=== PATIENT | female | born 1985 | race Two or more races ===

== ENCOUNTER 2016-12-22 03:34 | Inpatient (IN) | payer SELFPAY ==
[~2016-12-22] VITALS: Ht 162.6 cm; Wt 79.4 kg
[~2016-12-22 03:34] MED LIST: NITR100C62 PO; PNV91TAB3 PO
[2016-12-22] MEDS ORDERED: OXYTOCIN 30 UNIT/500 ML PREMIX 500 ML IV PRN ×2 (04:00→08:00)
[2016-12-22] MEDS ORDERED: AMPICILLIN 1 GM in IV NORMAL SALINE 50ML 50 ML IV SCH ×2 (04:00→08:30)
[2016-12-22] MEDS ORDERED: 0.9 % SODIUM CHLORIDE 10 ML DISP.SYRIN. IV PRN ×2 (04:00→08:00)
[2016-12-22] MEDS ORDERED: BUTORPHANOL 2 MG VIAL. IV PRN (04:00)
[2016-12-22] MEDS ORDERED: TERBUTALINE 1 MG/ML VIAL. SQ PRN (04:00)
[2016-12-22] MEDS ORDERED: LIDOCAINE 1% PF 30 ML VIAL. INJ PRN (04:00)
[2016-12-22] MEDS ORDERED: IBUPROFEN 600 MG TABLET. PO PRN (04:00)
[2016-12-22] MEDS ORDERED: FENTANYL PF 100 MCG/2 ML VIAL. IV PRN (04:00)
[2016-12-22 04:26] LABS: BILIRUBIN,URINE NEGATIVE (NEG); GLUCOSE,URINE NEGATIVE (NEG); NITRITE,URINE NEGATIVE (NEG); PROTEIN,URINE NEGATIVE (NEG-TRACE); UROBILINOGEN,URINE 0.2 mg/dL (0.2 mg/dL)
[2016-12-22] MEDS ORDERED: AMPICILLIN 2 GM in IV NORMAL SALINE 100ML 100 ML IV ONE (04:30)
[2016-12-22 04:33] LABS: BACTERIA,URINE 0 /HPF (0-FEW); RBC,URINE OCC /HPF (0-2); SQUAMOUS EPITHELIAL CELL,UR FEW /LPF
[2016-12-22 04:34] VITALS: BP 120/72
[2016-12-22] MEDS: IV RINGERS,LACTATED 1000ML 1,000 ML IV SCH ×3 (04:47→10:40)
[2016-12-22 04:53] LABS: BASO % 0 % (0-3); EOS % 1 % (0-3); HEMATOCRIT 35.2 % (36.0-47.0); LYMPH # 2.4 x10^3/uL (1.0-4.8); LYMPH % 23 % (24-48); MEAN CORPUSCULAR HEMOGLOBIN 31 pg (25-35); MEAN CORPUSCULAR HGB CONC 34 g/dL (31-37); MEAN CORPUSCULAR VOLUME 90 fL (79-100); MONO % 5 % (0-9); NEUT % 70 % (31-73); PLATELET COUNT 196 x10^3/uL (140-400); RED BLOOD COUNT 3.92 x10^6/uL (3.50-5.40); WHITE BLOOD COUNT 10.4 x10^3/uL (4.0-11.0)
[2016-12-22] MEDS ORDERED: BETAMET ACET&NA PHOS 30 MG/5 ML VIAL. IM SCH (05:00)
[2016-12-22] MEDS ORDERED: OXYTOCIN in NORMAL SALINE PREMIX 30 UNIT/500 ML BAG. IV ONE (05:00)
[2016-12-22] MEDS ORDERED: AZITHROMYCIN 500 MG in IV NORMAL SALINE 250ML 250 ML IV ONE (06:30)
[2016-12-22] MEDS ORDERED: MAGNESIUM HYDROXIDE 2,400 MG/30 ML ORAL.SUSP. PO PRN (08:00)
[2016-12-22] MEDS ORDERED: MAG HYDROX/ALUMINUM HYD/SIMETH 30 ML ORAL.SUSP PO PRN (08:00)
[2016-12-22] MEDS ORDERED: HYDROCORTISONE 1% TOPICAL OINTMENT 30GM TUBE. TP PRN (08:00)
[2016-12-22] MEDS ORDERED: ACETAMINOPHEN 325 MG TABLET. PO PRN (08:00)
[2016-12-22] MEDS ORDERED: MMR per PROTOCOL. MC PRN (08:00)
[2016-12-22] MEDS ORDERED: ZOLPIDEM 5 MG TABLET. PO PRN (08:00)
[2016-12-22] MEDS ORDERED: OXYCODONE/APAP 5/325 TABLET. PO PRN (08:00)
[2016-12-22] MEDS ORDERED: DOCUSATE SODIUM 100 MG CAPSULE PO PRN (08:00)
[2016-12-22] MEDS ORDERED: SIMETHICONE 80 MG TAB.CHEW PO PRN (08:00)
[2016-12-22] MEDS ORDERED: DIPHENHYDRAMINE HCL 25 MG CAPSULE PO PRN (08:00)
[2016-12-22] MEDS ORDERED: PHENYLEPH/MINERAL OIL/PETROLAT RECTAL OINTMENT 28GM TUBE. RC PRN (08:00)
[2016-12-22] MEDS ORDERED: BENZOCAINE 20% TOPICAL AEROSOL SPRAY 57GM CAN. TP PRN (08:00)
--- NOTE | 2016-12-22 11:52 | HP ---
ADMIT DATE: CHIEF COMPLAINT AND HISTORY OF PRESENT ILLNESS: This patient is a 31-year-old Stateless lady who is 4, para 4 and her EDC 02/17/2017, was seen at the [facility] and the patient came into the [facility] Delivery [facility] at [facility] and complaining of leaking of fluid and also having pain and contractions. OBJECTIVE: VITAL SIGNS: Stable. HEAD, EYES, NOSE, THROAT: Within normal limits. LUNGS: Clear. HEART: Sounds regular sinus rhythm. BREASTS: No masses are palpable at this time. ABDOMEN: Feels about 33 weeks. heart tones are 140 per minute, vertex presenting. PELVIC: Exam showed cervix dilated to about ____ cm and leaking clear amniotic fluid, hence the patient admitted to the hospital. DIAGNOSES: 4, 33 weeks' , labor, premature rupture of membranes. PLAN: Admission, IV fluids, IV antibiotics and vaginal delivery. BHARTI MCCRARY MD DR: LEYDA/helena JOB#: [id number] / [id number]
[2016-12-22] MEDS ORDERED: IBUPROFEN 600 MG TABLET. PO SCH (12:00)
--- NOTE | 2016-12-22 12:11 | LDN ---
DATE OF DELIVERY: The patient is a 31-year-old Ethiopian lady who is a 4, para 4, admitted to the hospital with a history of having contractions and leaking amniotic fluid. At the time of admission to the hospital, cervix dilated about 3 cm, vertex presenting, leaking clear fluid and she did have ____ labor to 6 cm and augmentation of labor was done at this time with IV Pitocin and she got to complete dilatation and had a spontaneous vaginal delivery. A live female delivered at 10:58 a.m. on 12/22/2016 with a good scores, cord appeared to be normal, spontaneous expulsion of the placenta. There was no perineal care. She did receive Pitocin after delivery of the placenta. Estimated blood loss about 50 mL. Mother tolerated the delivery well. No complications at this time. Baby is referred to bicycle rental clerk for further care and treatment. BHARTI MCCRARY MD DR: LEYDA/helena JOB#: [id number] / [id number]
[2016-12-22 14:00] VITALS: BP 100/51
[2016-12-22 15:00] VITALS: BP 98/55
[2016-12-22 18:25] VITALS: BP 95/50
[2016-12-22 23:08] VITALS: BP 87/54
[2016-12-23 06:32] VITALS: BP 114/60
[2016-12-23] MEDS ORDERED: FERROUS SULFATE 325 MG TABLET PO SCH (08:00)
--- NOTE | 2016-12-23 08:26 | PDOC3 ---
OB DISCHARGE SUMMARY DATE OF ADMISSION: 12/22/16 DATE OF DISCHARGE: 12/23/16 REASON FOR ADMISSION: Onset of labor, labor PROCEDURES: Ultrasound INTRAPARTUM PROCEDURES: Spontanous Vag Deliv PROCEDURES: None OPERATIONS: None DISCHARGE DIAGNOSIS: Others ( delivery) DISCHARGE INFORMATION: Activity, Diet HOSPITAL COURSE Unremarkable CONDITION AT DISCHARGE Stable ROSALIE GIBBS MD Dec 23, 2016 08:26
[2016-12-23] MEDS ORDERED: NAPR500T3 PO (08:27)
[2016-12-23] MEDS ORDERED: HYDR-971 PO (08:27)
[2016-12-23 09:51] VITALS: BP 108/69
== END 2016-12-23 10:30 | disposition home or self-care (01) | DRG 775 ==
LOC: OBSVTOIN 03:34 → 3 SO LND 03:34
PROVIDERS: ADMIT Obstetrics & Gynecology; ATTEND Obstetrics & Gynecology
PROC: 10E0XZZ Delivery of Products of Conception, External Approach (ICD-10-PCS; principal; 2016-12-22)
PROC: 3E033VJ Introduction of Other Hormone into Peripheral Vein, Percutaneous Approach (ICD-10-PCS; 2016-12-22)
DX: O60.10X0 Preterm labor with preterm delivery, unspecified trimester, not applicable or unspecified (principal); O42.913 Preterm premature rupture of membranes, unspecified as to length of time between rupture and onset of labor, third trimester; Z3A.33 33 weeks gestation of pregnancy; Z37.0 Single live birth
CPT/HCPCS: 36415; 81001; 85014; 85027; 86593; 86762; 86850; 86900; 86901; 87086; 87340; 87341; 87653; G0378; J0290; J0456; J0702; J2590; J7050; J7120; J7030

== ENCOUNTER 2018-07-16 05:48 | Observation (INO) | payer SELFPAY ==
[2018-07-16] VITALS (10 sets, daily range): BP systolic 104–118; BP diastolic 56–72
[~2018-07-16] VITALS: Ht 165.1 cm; Wt 76.2 kg
[~2018-07-16 05:48] MED LIST changes: +HYDR-971 PO; +NAPR-514 PO
[2018-07-16] MEDS ORDERED: BUPIVACAINE-EPI 0.5%-1:200000 50 ML VIAL. ONE ×2 (06:04)
[2018-07-16] MEDS ORDERED: METHYLENE BLUE 1% 10 ML VIAL. ONE (06:04)
[2018-07-16] MEDS ORDERED: DEXAMETHASONE SOD PHOS 20 MG/5 ML VIAL. ONE (06:21)
[2018-07-16] MEDS ORDERED: PROPOFOL 20 ML IV ONE ×2 (06:21→09:06)
[2018-07-16] MEDS ORDERED: FAMOTIDINE 20 MG/2 ML VIAL ONE ×2 (06:21→07:49)
[2018-07-16] MEDS ORDERED: ROCURONIUM 50 MG/5 ML VIAL. ONE (06:22)
[2018-07-16 06:38] LABS: BASO % 1 % (0-3); EOS # 0.1 x10^3/uL (0.0-0.7); EOS % 2 % (0-3); HEMATOCRIT 39.8 % (36.0-47.0); LYMPH # 2.2 x10^3/uL (1.0-4.8); LYMPH % 32 % (24-48); MEAN CORPUSCULAR HEMOGLOBIN 32 pg (25-35); MEAN CORPUSCULAR HGB CONC 35 g/dL (31-37); MEAN CORPUSCULAR VOLUME 90 fL (79-100); MONO # 0.5 x10^3/uL (0.0-1.1); MONO % 8 % (0-9); NEUT # 4.1 x10^3uL (1.8-7.7); NEUT % 58 % (31-73); PLATELET COUNT 262 x10^3/uL (140-400); RED BLOOD COUNT 4.42 x10^6/uL (3.50-5.40); RED CELL DISTRIBUTION WIDTH 13.1 % (11.5-14.5); WHITE BLOOD COUNT 7.1 x10^3/uL (4.0-11.0)
[2018-07-16] MEDS ORDERED: HYDROmorphone 2 MG/ML VIAL IV PRN ×3 (07:00→09:45)
[2018-07-16] MEDS ORDERED: PROCHLORPERAZINE 10 MG/2 ML VIAL. IV PRN ×2 (07:00)
[2018-07-16] MEDS ORDERED: MORPHINE SULFATE 2 MG/ML VIAL. IV PRN ×2 (07:00)
[2018-07-16] MEDS ORDERED: ONDANSETRON PF 4 MG/2 ML VIAL. IV PRN ×3 (07:00→09:45)
[2018-07-16] MEDS ORDERED: IV RINGERS,LACTATED 1000ML 1,000 ML IV SCH ×2 (07:00)
[2018-07-16] MEDS ORDERED: fentaNYL PF VIAL 100 MCG/2 ML VIAL IV PRN ×3 (07:00)
[2018-07-16] MEDS ORDERED: LIDOCAINE 1% PF 2 ML VIAL. ID PRN ×2 (07:00)
--- NOTE | 2018-07-16 07:07 | PDOC1 ---
History and Physical Date of Admission Date of Admission DATE: 07/16/18 TIME: 06:57 Identification/Chief Complaint Chief Complaint Pelvic relaxation Source Source: Patient Current Medications Current Medications Current Medications Ondansetron HCl (Zofran) 4 mg PRN Q6HRS PRN IV NAUSEA/VOMITING; Start 07/16/18 at 07:00; Stop 07/17/18 at 06:59 Fentanyl Citrate (Fentanyl 2ml Vial) 25 mcg PRN Q5MIN PRN IV MILD PAIN; Start 07/16/18 at 07:00; Stop 07/17/18 at 06:59 Fentanyl Citrate (Fentanyl 2ml Vial) 50 mcg PRN Q5MIN PRN IV MODERATE TO SEVERE PAIN; Start 07/16/18 at 07:00; Stop 07/17/18 at 06:59 Morphine Sulfate (Morphine Sulfate) 1 mg PRN Q10MIN PRN IV SEVERE PAIN; Start 07/16/18 at 07:00; Stop 07/17/18 at 06:59 Ringer's Solution 1,000 ml @ 30 mls/hr Q24H IV Last administered on 07/16/18at 06:33; Start 07/16/18 at 07:00; Stop 07/16/18 at 18:59 Lidocaine HCl (Xylocaine-Mpf 1% 2ml Vial) 2 ml PRN 1X PRN ID IV START; Start 07/16/18 at 07:00; Stop 07/17/18 at 06:59 Hydromorphone HCl (Dilaudid) 0.5 mg PRN Q10MIN PRN IV SEV PAIN, Second choice; Start 07/16/18 at 07:00; Stop 07/17/18 at 06:59 Prochlorperazine Edisylate (Compazine) 5 mg PACU PRN PRN IV NAUSEA, MRX1; Start 07/16/18 at 07:00; Stop 07/17/18 at 06:59 Ondansetron HCl (Zofran) 4 mg PRN Q6HRS PRN IV NAUSEA/VOMITING; Start 07/16/18 at 07:00; Stop 07/17/18 at 06:59 Fentanyl Citrate (Fentanyl 2ml Vial) 25 mcg PRN Q5MIN PRN IV MILD PAIN; Start 07/16/18 at 07:00; Stop 07/17/18 at 06:59 Fentanyl Citrate (Fentanyl 2ml Vial) 50 mcg PRN Q5MIN PRN IV MODERATE TO SEVERE PAIN; Start 07/16/18 at 07:00; Stop 07/17/18 at 06:59 Morphine Sulfate (Morphine Sulfate) 1 mg PRN Q10MIN PRN IV SEVERE PAIN; Start 07/16/18 at 07:00; Stop 07/17/18 at 06:59 Ringer's Solution 1,000 ml @ 30 mls/hr Q24H IV ; Start 07/16/18 at 07:00; Stop 07/16/18 at 18:59 Lidocaine HCl (Xylocaine-Mpf 1% 2ml Vial) 2 ml PRN 1X PRN ID IV START; Start 07/16/18 at 07:00; Stop 07/17/18 at 06:59 Hydromorphone HCl (Dilaudid) 0.5 mg PRN Q10MIN PRN IV SEV PAIN, Second choice; Start 07/16/18 at 07:00; Stop 07/17/18 at 06:59 Prochlorperazine Edisylate (Compazine) 5 mg PACU PRN PRN IV NAUSEA, MRX1; Start 07/16/18 at 07:00; Stop 07/17/18 at 06:59 Dexamethasone Sodium Phosphate (Decadron) 20 mg STK-MED ONCE .ROUTE ; Start 07/16/18 at 06:21; Stop 07/16/18 at 06:23; Status DC Famotidine (Pepcid Vial) 20 mg STK-MED ONCE .ROUTE ; Start 07/16/18 at 06:21; Stop 07/16/18 at 06:23; Status DC Propofol 20 ml @ As Directed STK-MED ONCE IV ; Start 07/16/18 at 06:21; Stop at 06:23; Status DC Rocuronium Ganado (Zemuron) 50 mg STK-MED ONCE .ROUTE ; Start 07/16/18 at 06:22 ; Stop 07/16/18 at 06:23; Status DC Cefazolin Sodium/ Dextrose 50 ml @ As Directed STK-MED ONCE IV ; Start 07/16/18 at 06:25; Stop 07/16/18 at 06:26; Status DC Active Scripts Active Reported No Known Medications Prior To Admisstion (Info) Each 1 Each Allergies Allergies: Coded Allergies: No Known Drug Allergies (Unverified , 07/16/18) Physical Exam General: Alert, Oriented X3, Cooperative, No acute distress HEENT: PERRLA Lungs: Clear to auscultation, Normal air movement Heart: RRR Breasts: Normal, Rt breast nml w/o mass, Lt breast nml w/o mass, Nipples normal PELVIC: Nml ext genitalia, Nml ext vulva, Nml ext vagina, Other (pelvec relaxation) Vitals Vitals Vital Signs Date Time Temp Pulse Resp B/P (MAP) Pulse Ox O2 Delivery O2 Flow Rate FiO2 07/16/18 06:21 98.3 75 16 114/73 96 Room Air 98.3 Labs Labs Laboratory Tests Test 07/16/18 06:30 White Blood Count 7.1 x10^3/uL (4.0-11.0) Red Blood Count 4.42 x10^6/uL (3.50-5.40) Hemoglobin 14.0 g/dL (12.0-15.5) Hematocrit 39.8 % (36.0-47.0) Mean Corpuscular Volume 90 fL (79-100) Mean Corpuscular Hemoglobin 32 pg (25-35) Mean Corpuscular Hemoglobin Concent 35 g/dL (31-37) Red Cell Distribution Width 13.1 % (11.5-14.5) Platelet Count 262 x10^3/uL (140-400) Neutrophils (%) (Auto) 58 % (31-73) Lymphocytes (%) (Auto) 32 % (24-48) Monocytes (%) (Auto) 8 % (0-9) Eosinophils (%) (Auto) 2 % (0-3) Basophils (%) (Auto) 1 % (0-3) Neutrophils # (Auto) 4.1 x10^3uL (1.8-7.7) Lymphocytes # (Auto) 2.2 x10^3/uL (1.0-4.8) Monocytes # (Auto) 0.5 x10^3/uL (0.0-1.1) Eosinophils # (Auto) 0.1 x10^3/uL (0.0-0.7) Basophils # (Auto) 0.0 x10^3/uL (0.0-0.2) Laboratory Tests Test 07/16/18 06:30 White Blood Count 7.1 x10^3/uL (4.0-11.0) Red Blood Count 4.42 x10^6/uL (3.50-5.40) Hemoglobin 14.0 g/dL (12.0-15.5) Hematocrit 39.8 % (36.0-47.0) Mean Corpuscular Volume 90 fL (79-100) Mean Corpuscular Hemoglobin 32 pg (25-35) Mean Corpuscular Hemoglobin Concent 35 g/dL (31-37) Red Cell Distribution Width 13.1 % (11.5-14.5) Platelet Count 262 x10^3/uL (140-400) Neutrophils (%) (Auto) 58 % (31-73) Lymphocytes (%) (Auto) 32 % (24-48) Monocytes (%) (Auto) 8 % (0-9) Eosinophils (%) (Auto) 2 % (0-3) Basophils (%) (Auto) 1 % (0-3) Neutrophils # (Auto) 4.1 x10^3uL (1.8-7.7) Lymphocytes # (Auto) 2.2 x10^3/uL (1.0-4.8) Monocytes # (Auto) 0.5 x10^3/uL (0.0-1.1) Eosinophils # (Auto) 0.1 x10^3/uL (0.0-0.7) Basophils # (Auto) 0.0 x10^3/uL (0.0-0.2) VTE Prophylaxis Ordered VTE Prophylaxis Devices: Yes VTE Pharmacological Prophylaxi: No Assessment/Plan Assessment/Plan Pelvic relaxation TNH A and P repair SS and sling by ROSALIE Mendez MD Jul 16, 2018 07:07
[2018-07-16 07:15] LABS: U PREG PATIENT NEGATIVE (NEG)
[2018-07-16] MEDS ORDERED: LIDOCAINE 1%/EPI 1:100,000 20 ML VIAL. INJ ONE (07:15)
[2018-07-16] MEDS ORDERED: fentaNYL PF VIAL 100 MCG/2 ML VIAL ONE ×3 (07:16→10:10)
[2018-07-16] MEDS ORDERED: MIDAZOLAM HCL/PF 2 MG/2 ML VIAL. ONE (07:16)
[2018-07-16] MEDS ORDERED: KETOROLAC 30 MG/ML INJ FOR OR. INJ ONE (07:49)
[2018-07-16] MEDS ORDERED: ISOFLURANE 61 TO 120 MINUTES. IH ONE (08:00)
[2018-07-16] MEDS ORDERED: DESFLURANE 31 TO 60 MINUTES IH ONE (08:00)
[2018-07-16] MEDS ORDERED: SEVOFLURANE > 120 MINUTES. IH ONE ×2 (08:00→09:47)
[2018-07-16] MEDS ORDERED: GLYCOPYRROLATE 1 MG/5 ML VIAL. ONE (08:52)
[2018-07-16] MEDS ORDERED: NEOSTIGMINE METHYLSULFATE 5 MG/5 ML SYRINGE. ONE (08:52)
[2018-07-16] MEDS ORDERED: DESFLURANE 61 TO 120 MINUTES IH ONE (09:00)
--- NOTE | 2018-07-16 09:16 | PDOC ---
BRIEF OPERATIVE NOTE Date: Jul 16, 2018 Pre-Op Diagnosis Complete Uterovaginal Prolapse DION Post-Op Diagnosis Same Procedure Performed TVH, SSF, Bladder Sling and Posterior Repair Surgeon Dr. Ellis Storage And Backup Administrator Dr. Archer Anesthesia Type: General Blood Loss 150 ml Specimens Obtained uterus and cervix Findings complete uterovaginal prolapse and DION Complications none Operative Note see dictation FAUSTINO ELLIS Jr, MD Jul 16, 2018 09:16
[2018-07-16] MEDS ORDERED: PHENYLEPHRINE in 0.9% NACL PF 1 MG/10 ML SYRINGE. IV ONE (09:17)
[2018-07-16] MEDS ORDERED: metroNIDAZOLE 0.75% VAGINAL 1 APP TUBE VG ONE (09:30)
[2018-07-16] MEDS ORDERED: ZOLPIDEM 5 MG TABLET. PO PRN (09:45)
[2018-07-16] MEDS ORDERED: diphenhydrAMINE HCL 25 MG CAPSULE PO PRN (09:45)
[2018-07-16] MEDS ORDERED: OPIUM/BELLADONNA 30/16.2MG SUPP.RECT. PR ONE (09:45)
[2018-07-16] MEDS ORDERED: CALCIUM CARBONATE 500 MG TAB.CHEW PO PRN (09:45)
[2018-07-16] MEDS ORDERED: NALOXONE 0.4 MG/ML VIAL. IV PRN (09:45)
[2018-07-16] MEDS ORDERED: DEXTROSE 50% 25 GM / 50ML DISP.SYRIN. IV PRN (09:45)
[2018-07-16] MEDS ORDERED: MAG HYDROX/ALUMINUM HYD/SIMETH 30 ML ORAL.SUSP PO PRN (09:45)
[2018-07-16] MEDS ORDERED: 0.9 % SODIUM CHLORIDE 10 ML DISP.SYRIN. IV PRN (09:45)
[2018-07-16] MEDS ORDERED: SIMETHICONE 80 MG TAB.CHEW PO PRN (09:45)
--- NOTE | 2018-07-16 09:46 | PDOC ---
BRIEF OPERATIVE NOTE Pre-Op Diagnosis Pelvic relaxation Post-Op Diagnosis Same Procedure Performed TVH A & P repair Surgeon Gianni Plant Tech Yesy Anesthesia Type: General Blood Loss 100cc Specimens Obtained Uterus Complications None Operative Note Dictated ROSALIE GIBBS MD Jul 16, 2018 09:46
[2018-07-16] MEDS: fentaNYL PF VIAL 100 MCG/2 ML VIAL IV PRN ×2 (10:16→10:29)
--- NOTE | 2018-07-16 11:45 | OP ---
DATE OF SURGERY: PREOPERATIVE DIAGNOSES: 1. Complete uterovaginal prolapse. 2. Stress urinary incontinence. POSTOPERATIVE DIAGNOSES: 1. Complete uterovaginal prolapse. 2. Stress urinary incontinence. PROCEDURE: 1. Sacrospinous ligament fixation. 2. Bladder sling. 3. TVH. 4. Posterior repair. PRIMARY SURGEON FOR THIS PORTION: Dragan Ellis MD WEIGHT YARDAGE CHECKER: Dr. Archer. ANESTHESIA: GETA. ESTIMATED BLOOD LOSS: 50 mL. COMPLICATIONS: None. FINDINGS: Complete uterovaginal prolapse and stress urinary incontinence. SUMMARY: A 33-year-old with complete uterovaginal prolapse and stress urinary incontinence that was diagnosed in clinic requiring surgical repair in the form of TVH, sacrospinous ligament fixation, bladder sling, anterior-posterior repair. She was counseled on risks, benefits and expectations and voiced clear understanding to proceed. Dr. Archer performed the hysterectomy portion as well as the posterior repair. My portion of the surgery involved the sacrospinous ligament fixation and the bladder sling placement. DESCRIPTION OF PROCEDURE: After the hysterectomy was completed by Dr. Archer, the right sacrospinous ligament was palpated. The Tuneio device was utilized to place a suture through the medial aspect of the sacrospinous ligament. This was tied to the anterior and posterior vaginal cuff. Two sutures were placed in this manner and tied to a loose fit to provide pelvic support. The vaginal cuff was then reapproximated using 2-0 Vicryl suture in a [id number]-vu-[id number] manner. The anterior vaginal mucosa was dissected away from the pubovesical fascia using sharp dissection with scalpel as well as Metzenbaum scissors. The periurethral space was dissected further using blunt dissection to the obturator foramen bilaterally. Incision was made in the groin regions at the level of the clitoris and where the abductus longus attached to the pubic rami bilaterally. The Obtryx trocar was then placed through the right groin incision, passed through the obturator foramen and guided with my index finger through the periurethral space. Same process took place with the trocar on the left side. Cystoscopy was then performed in which the ureterovesical junctions were functioning normally. There was no evidence of bladder perforation. The cystoscope was removed. The bladder sling was then adjusted with a size 7 Hegar dilator to a loose fit. The exposed mesh at the groin was removed at the level of the skin. The skin was reapproximated using Dermabond. The anterior vaginal wall mucosa was reapproximated using 2-0 Vicryl suture in a [id number] manner. Please see Dr. Archer's dictation for remainder of the surgery as well as for the hysterectomy portion of the surgery. The patient tolerated the procedure well and was sent to recovery room in stable condition. Sponge and needle count correct x 3. DRAGAN ELLIS MD DR: LINDSAY/helena JOB#: [id number] / [id number]
[2018-07-16] MEDS: oxyCODONE/APAP 5/325 1 TAB TABLET PO PRN ×3 (11:55→17:46)
[2018-07-16] MEDS: ceFAZolin SODIUM 1 GM in IV DEXTROSE 5% 50 ML IV SCH ×2 (14:52→21:09)
[2018-07-16] MEDS ORDERED: ceFAZolin SODIUM 1 GM in IV DEXTROSE 5% 50 ML IV SCH (16:00)
[2018-07-16] MEDS ORDERED: oxyCODONE/APAP 5/325 1 TAB TABLET PO PRN ×2 (17:45)
[2018-07-16] MEDS ORDERED: KETOROLAC 30 MG/ML VIAL. IV PRN ×2 (18:30)
[2018-07-16] MEDS: DOCUSATE SODIUM 100 MG CAPSULE. PO SCH (21:00)
[2018-07-16] MEDS: SENNOSIDES/DOCUSATE 8.6/50MG TABLET. PO SCH (21:00)
[2018-07-17] MEDS: ceFAZolin SODIUM 1 GM in IV DEXTROSE 5% 50 ML IV SCH (04:45)
[2018-07-17] MEDS: oxyCODONE/APAP 5/325 1 TAB TABLET PO PRN ×2 (04:45→08:37)
[2018-07-17 04:47] VITALS: BP 107/56
[2018-07-17 05:21] LABS: CALCIUM 8.8 mg/dL (8.5-10.1); CREATININE 0.6 mg/dL (0.6-1.0); GFR 113.8; POTASSIUM 3.7 mmol/L (3.5-5.1)
[2018-07-17 07:42] VITALS: BP 98/54
[2018-07-17] MEDS: DOCUSATE SODIUM 100 MG CAPSULE. PO SCH (08:37)
[2018-07-17] MEDS: SENNOSIDES/DOCUSATE 8.6/50MG TABLET. PO SCH (08:37)
[2018-07-17 10:51] VITALS: BP 102/59
--- NOTE | 2018-07-17 17:15 | PDOC ---
SURGICAL PROGRESS NOTE Subjective Pt. feeling well. Pain controlled. Pt. passed bladder challenge and emptied completely. Vital Signs Vital Signs Date Time Temp Pulse Resp B/P (MAP) Pulse Ox O2 Delivery O2 Flow Rate FiO2 07/17/18 10:51 98.2 63 16 102/59 (73) 95 Room Air 98.2 63 07/16/18 10:16 10.0 I&O Intake and Output 07/17/18 07:00 Intake Total 2424 ml Output Total 2100 ml Balance 324 ml Intake Oral 140 ml IV Total 1450 ml Other 834 ml Output Urine Total 2000 ml Estimated Blood Loss 100 ml PATIENT HAS A JONES: No General: Alert, Oriented X3, Cooperative HEENT: Atraumatic Lungs: Clear to auscultation Heart: Regular rate Abdomen: Normal bowel sounds, Soft, No tenderness, No masses Extremities: No edema, Normal pulses Skin: No rashes Neuro: Normal gait Psych/Mental Status: Mental status NL Labs Laboratory Tests Test 07/16/18 06:30 07/16/18 06:35 07/17/18 04:20 White Blood Count 7.1 x10^3/uL (4.0-11.0) Red Blood Count 4.42 x10^6/uL (3.50-5.40) Hemoglobin 14.0 g/dL (12.0-15.5) Hematocrit 39.8 % (36.0-47.0) 34.0 % (36.0-47.0) Mean Corpuscular Volume 90 fL (79-100) Mean Corpuscular Hemoglobin 32 pg (25-35) Mean Corpuscular Hemoglobin Concent 35 g/dL (31-37) Red Cell Distribution Width 13.1 % (11.5-14.5) Platelet Count 262 x10^3/uL (140-400) Neutrophils (%) (Auto) 58 % (31-73) Lymphocytes (%) (Auto) 32 % (24-48) Monocytes (%) (Auto) 8 % (0-9) Eosinophils (%) (Auto) 2 % (0-3) Basophils (%) (Auto) 1 % (0-3) Neutrophils # (Auto) 4.1 x10^3uL (1.8-7.7) Lymphocytes # (Auto) 2.2 x10^3/uL (1.0-4.8) Monocytes # (Auto) 0.5 x10^3/uL (0.0-1.1) Eosinophils # (Auto) 0.1 x10^3/uL (0.0-0.7) Basophils # (Auto) 0.0 x10^3/uL (0.0-0.2) Urine Test Negative (NEG) Sodium Level 140 mmol/L (136-145) Potassium Level 3.7 mmol/L (3.5-5.1) Chloride Level 106 mmol/L (98-107) Carbon Dioxide Level 28 mmol/L (21-32) Anion Gap 6 (6-14) Blood Urea Nitrogen 14 mg/dL (7-20) Creatinine 0.6 mg/dL (0.6-1.0) Estimated GFR (Cockcroft-Gault) 113.8 Glucose Level 98 mg/dL (70-99) Calcium Level 8.8 mg/dL (8.5-10.1) Laboratory Tests Test 07/17/18 04:20 Hematocrit 34.0 % (36.0-47.0) Sodium Level 140 mmol/L (136-145) Potassium Level 3.7 mmol/L (3.5-5.1) Chloride Level 106 mmol/L (98-107) Carbon Dioxide Level 28 mmol/L (21-32) Anion Gap 6 (6-14) Blood Urea Nitrogen 14 mg/dL (7-20) Creatinine 0.6 mg/dL (0.6-1.0) Estimated GFR (Cockcroft-Gault) 113.8 Glucose Level 98 mg/dL (70-99) Calcium Level 8.8 mg/dL (8.5-10.1) Assessment/Plan A: POD#1 s/p TVH, SSF, Posterior Repair and BLadder sling P: D/c home. FAUSTINO VILLAFUERTE Jr, MD Jul 17, 2018 17:14
--- NOTE | 2018-07-17 17:15 | DISCH ---
DISCHARGE INSTRUCTIONS Condition on Discharge Condition on Discharge: Stable Activity After Discharge Activity Instructions for Disc: Activity as tolerated Lifting Instructions after Dis: No heavy lifting Driving Instructions after Dis: Do not drive today, No driving for 2 weeks Diet after Discharge Diet after Discharge: Regular Contacting the DRPriti after DC Call your doctor for: Concerns you may have Follow-Up Follow up with: Dr. Archer in [address] Ellis in 2 weeks. FAUSTINO ELLIS Jr, MD Jul 17, 2018 17:15
[2018-07-17] MEDS ORDERED: DOCU-109 PO (17:21)
[2018-07-17] MEDS ORDERED: OXYC1TAB7 PO (17:21)
[2018-07-17] MEDS ORDERED: NAPR-683 PO (17:21)
--- NOTE | 2018-07-18 09:11 | PATHOLOGY ---
[facility] Accession Number: [id number] . 01 Material submitted: . UTERUS AND CERVIX . 01 Clinician provided ICD-10: N81.89 . 01 Clinical history: . Pelvic relaxation . 02 Diagnosis: Uterus, vaginal hysterectomy: - Chronic cervicitis with squamous metaplasia. - Basalis and focal secretory endometrium showing glandular/stromal breakdown. - Adenomyosis, uterine corpus, subbasal, focal. (JPM/db; 07/17/18) LBQ/07/17/2018 . 02 Electronically signed: . Geoff Madrid MD, Pathologist NPI- [id number] . 01 Gross description: . The specimen is received in formalin, labeled "Jesusosalazsheldon, Renee, uterus and cervix" and consists of a 120 g uterus with attached cervix measuring 10.6 x 5.2 x 4.7 cm. The uterine serosa is pink-florez, smooth, and shiny. The slitlike 1.9 cm cervical os is surrounded by pink-florez and dusky ectocervical mucosa. The specimen is bivalved to reveal a florez and grooved endocervical canal measuring 3.0 cm. The endometrial cavity is triangular measuring 4.3 cm in length and 2.7 cm in width and lined with a hemorrhagic endometrium measuring 0.1 cm. Further serial sectioning reveals a pink-florez myometrium measuring up to 2.5 cm. No nodules or mass lesions identified and arborist representative sections are submitted as follows: . A1: Anterior cervix A2: Posterior cervix A3: Anterior endomyometrium A4: Posterior endomyometrium (SDY; 07/16/2018) SYU/SYU . 02 Pathologist provided ICD-10: N72, N80.0 . 02 CPT . 928218 Specimen Comment: A courtesy copy of this report has been sent to Specimen Comment: [phone], . Specimen Comment: Report sent to / DR EVANS Specimen Comment: A duplicate report has been generated due to demographic updates. Performed at: 01 [facility] [address], [place] [id number] MD Twan Cordova MD Phone: [phone] Performed at: 02 [facility] [address] [place], [place] [id number] MD Geoff Madrid MD Phone: [phone]
== END 2018-07-17 18:00 | disposition home or self-care (01) ==
LOC: SURG 05:48 → 3 NORTH 10:33
PROVIDERS: ADMIT Specialist; ATTEND Specialist
DX: N81.3 Complete uterovaginal prolapse (principal); N39.3 Stress incontinence (female) (male)
CPT/HCPCS: 36415; 57287; 58260; 80048; 81025; 85014; 85025; 86850; 86900; 86901; 88307; 96365; 96366; 96375; A7015; G0378; G0379; J0690; J1100; J1885; J2250; J2370; J2704; J2710; J3010; J3490; J7030; J7120; Q0163; S0028; Q9968; C1771

== ENCOUNTER 2020-03-17 06:53 | Emergency (ER) | payer SELFPAY ==
[~2020-03-17] VITALS: Ht 165.1 cm; Wt 60.0 kg
[~2020-03-17 06:53] MED LIST changes: +DOCU-109 PO; +HYDR-3164 PO; -HYDR-971 PO; +NAPR-683 PO; +OXYC1TAB7 PO
[2020-03-17 07:37] LABS: CALCIUM 8.6 mg/dL (8.5-10.1); CREATININE 0.9 mg/dL (0.6-1.0); GFR 70.5; POTASSIUM 3.3 mmol/L (3.5-5.1)
--- NOTE | 2020-03-17 07:38 | PHYS DOC ---
Past Medical History Past Medical History: STD, Other Additional Past Medical Histor: herpes Past Surgical History: Cholecystectomy Smoking Status: Never Smoker Alcohol Use: None Drug Use: None General Adult EDM: Chief Complaint: SUICDAL IDEATION HPI: HPI: Patient is a 35-year-old female who presents emergency department today with suicidal ideation. She states she has been progressively more depressed over the last several weeks. She attributes her increasing depressive symptoms to COVID-19. She denies any alcohol or illicit drugs. She denies a specific plan to me. She states she feels like her symptoms may be related to a panic attack as well. [] Review of Systems: Review of Systems: Constitutional: Denies fever or chills. [] Eyes: Denies change in visual acuity. [] HENT: Denies nasal congestion or sore throat. [] Respiratory: Denies cough or shortness of breath. [] Cardiovascular: Denies chest pain or edema. [] GI: Denies abdominal pain, nausea, vomiting, bloody stools or diarrhea. [] : Denies dysuria. [] Musculoskeletal: Denies back pain or joint pain. [] Integument: Denies rash. [] Neurologic: Denies headache, focal weakness or sensory changes. [] Endocrine: Denies polyuria or polydipsia. [] Lymphatic: Denies swollen glands. [] Psychiatric: Reports anxiety and depression. [] Heart Score: Risk Factors: Risk Factors: DM, Current or recent (<one month) smoker, HTN, HLP, family history of CAD, obesity. Risk Scores: Score 0 - 3: 2.5% MACE over next 6 weeks - Discharge Home Score 4 - 6: 20.3% MACE over next 6 weeks - Admit for Clinical Observation Score 7 - 10: 72.7% MACE over next 6 weeks - Early Invasive Strategies Allergies: Allergies: Allergies Coded Allergies Type Severity Reaction Last Updated Verified No Known Drug Allergies 07/16/18 No Physical Exam: PE: Constitutional: Well developed, well nourished, no acute distress, non-toxic appearance. [] HENT: Normocephalic, atraumatic, bilateral external ears normal, oropharynx moist, no oral exudates, nose normal. [] Eyes: PERRLA, EOMI, conjunctiva normal, no discharge. [] Neck: Normal range of motion, no tenderness, supple, no stridor. [] Cardiovascular:Heart rate regular rhythm, no murmur [] Lungs & Thorax: Bilateral breath sounds clear to auscultation [] Abdomen: Bowel sounds normal, soft, no tenderness, no masses, no pulsatile mas ses. [] Skin: Warm, dry, no erythema, no rash. [] Back: No tenderness, no CVA tenderness. [] Extremities: No tenderness, no cyanosis, no clubbing, ROM intact, no edema. [] Neurologic: Alert and oriented X 3, normal motor function, normal sensory function, no focal deficits noted. [] Psychologic: Depressed affect [] Current Patient Data: Labs: Laboratory Tests Test 03/17/20 07:20 POC Urine HCG, Qualitative Hcg negative (Negative) EKG: EKG: [] Radiology/Procedures: Radiology/Procedures: [] Course & Med Decision Making: Course & Med Decision Making Pertinent Labs and Imaging studies reviewed. (See chart for details) [ED course: Evaluation reveals a 35-year-old female who was suicidal. She was evaluated by Primo from our psychiatric assessment team. After discussing with Primo we believe it is in her best interest to be sent to [facility] for stabilization.] Annette Disclaimer: Annette Disclaimer: This electronic medical record was generated, in whole or in part, using a voice recognition dictation system. Departure Departure Impression: Primary Impression: Suicidal ideation Disposition: 02 TRANSFER [facility] ([facility]) Condition: STABLE Referrals: AKASH EVANS SECURITY DELIVERY SPECIALIST-C (PCP) YUSEF ORELLANA DO Mar 17, 2020 07:38
[2020-03-17 07:41] LABS: ALBUMIN 3.9 g/dL (3.4-5.0); ALBUMIN/GLOBULIN RATIO 1.1 (1.0-1.7); BASO # 0.1 x10^3/uL (0.0-0.2); BASO % 1 % (0-3); EOS # 0.1 x10^3/uL (0.0-0.7); EOS % 1 % (0-3); LYMPH # 1.9 x10^3/uL (1.0-4.8); LYMPH % 18 % (24-48); MEAN CORPUSCULAR HEMOGLOBIN 31 pg (25-35); MEAN CORPUSCULAR HGB CONC 34 g/dL (31-37); MEAN CORPUSCULAR VOLUME 91 fL (79-100); MONO # 0.7 x10^3/uL (0.0-1.1); MONO % 6 % (0-9); NEUT # 7.8 x10^3/uL (1.8-7.7); NEUT % 75 % (31-73); PLATELET COUNT 290 x10^3/uL (140-400); RED BLOOD COUNT 4.51 x10^6/uL (3.50-5.40); RED CELL DISTRIBUTION WIDTH 13.5 % (11.5-14.5); TOTAL PROTEIN 7.4 g/dL (6.4-8.2); WHITE BLOOD COUNT 10.5 x10^3/uL (4.0-11.0)
[2020-03-17 07:41] LABS: BARBITURATES NEG (NEG); BENZODIAZEPINES NEG (NEG); CANNABINOIDS NEG (NEG); COCAINE NEG (NEG); METHADONE NEG (NEG); OPIATES NEG (NEG); PHENCYCLIDINE NEG (NEG)
[2020-03-17 07:42] LABS: AMPHETAMINE/METHAMPHETAMINE NEG (NEG)
[2020-03-17 07:51] LABS: ACETAMIN < 2 mcg/ml (10-30); ETHANOL < 10 mg/dL (0-10); SALIC < 2.8 mg/dL (2.8-20.0)
[2020-03-17 08:00] LABS: BILIRUBIN,URINE NEGATIVE (NEG); CLARITY,URINE CLEAR; COLOR,URINE YELLOW; NITRITE,URINE NEGATIVE (NEG); PH,URINE 6.5 (<5.0-8.0); PROTEIN,URINE NEGATIVE (NEG-TRACE)
[2020-03-17 08:28] LABS: BACTERIA,URINE FEW /HPF (0-FEW); RBC,URINE 0 /HPF (0-2); SQUAMOUS EPITHELIAL CELL,UR MOD /LPF
[2020-03-17] MEDS ORDERED: diazePAM 5 MG TABLET PO ONE (10:15)
[2020-03-17 11:37] VITALS: BP 119/69
== END 2020-03-17 12:13 | disposition short-term general hospital (02) ==
LOC: ER 06:53
DX: F41.9 Anxiety disorder, unspecified (principal); R45.851 Suicidal ideations; F32.9 Major depressive disorder, single episode, unspecified; Z90.49 Acquired absence of other specified parts of digestive tract
CPT/HCPCS: 36415; 80053; 80307; 80329; 81001; 81025; 85025; 99285; G0480